=== PATIENT | male | born 1970 | race Caucasian/White ===

== ENCOUNTER 2016-10-08 15:22 | Emergency (ER) | payer BC, OTHER ==
[2016-10-08 15:28] VITALS: BP 123/78; PULSE 86; TEMP 98.4; BMI 32.3
[2016-10-08] MEDS ORDERED: TRIAMCINOLONE ACET 40MG/1ML VIAL IM ONE (15:37)
[2016-10-08] MEDS ORDERED: TRIAMCINOLONE ACET 40MG/1ML VIAL ONE (16:15)
--- NOTE | 2016-10-08 16:39 | PDOC ---
History of Present Illness - General Chief Complaint: Poison [place],Poison Rusty Exposure Stated Complaint: POISON RUSTY Time Seen by Provider: 10/08/16 15:35 History Source: Patient Exam Limitations: No Limitations - History of Present Illness Initial Comments: 10/08/16 16:59 CHIEF COMPLAINT: Poison rusty HISTORY OF PRESENT ILLNESS: Patient is a 46-year-old male, no significant medical history currently on no medication. He was working in his friend's yard and noticed rash the next day, poison rusty, has been using over-the- counter remedies without resolve now areas spread to upper thighs. No rash to face or genitalia, patient concerned because it is spreading and getting worse. Timing/Duration: reports: week Severity: Yes: moderate Location: reports: generalized Respiratory Risk Factors: reports: other (plant/ poison rusty) Modifying Factors: improves with: calamine lotion, scratching Associated Symptoms: reports: rash Past History - Past Medical History Allergies/Adverse Reactions: Allergies Allergy/AdvReac Type Severity Reaction Status Date / Time No Known Allergies Allergy Verified 10/08/16 15:28 Home Medications: Ambulatory Orders Calamine 8% Topical Lotion - 1 applic TP BID #1 bottle 10/08/16 Suicide Attempt (Hx): No Other medical history: NONE - Immunization History Td Vaccination: Yes Immunization Up to Date: Yes - Psycho/Social/Smoking Cessation Hx Anxiety: No Suicidal Ideation: No Smoking Status: No Smoking History: Never smoked Number of Cigarettes Smoked Daily: 0 Cigars Per Day: 0 Hx Alcohol Use: No Drug/Substance Use Hx: No Substance Use Type: None Review of Systems - Review of Systems Constitutional: No: Symptoms Reported HEENTM: No: Symptoms Reported Respiratory: No: Symptoms reported Cardiac (ROS): No: Symptoms Reported ABD/GI: No: Symptoms Reported : No: Symptoms Reported Musculoskeletal: No: Symptoms Reported Integumentary: Yes: Pruritus, Rash Neurological: No: Symptoms reported Hematologic/Lymphatic: No: Symptoms Reported All Other Systems: Reviewed and Negative *Physical Exam - Vital Signs Last Vital Signs Temp Pulse Resp BP Pulse Ox 98.4 F 86 20 123/78 10/08/16 15:25 10/08/16 15:25 10/08/16 15:25 10/08/16 15:25 - Physical Exam General Appearance: Yes: Appropriately Dressed. No: Apparent Distress Neck: negative: Tender lateral, Tender midline Respiratory/Chest: positive: Lungs Clear, Normal Breath Sounds. negative: Respiratory Distress, Accessory Muscle Use Cardiovascular: positive: Regular Rhythm, Regular Rate Lymphatic: negative: Adenopathy Integumentary: positive: Rash. negative: Erythema, Diaphoresis, Petechiae, Swelling, Ecchymosis, Bruising Neurologic: positive: Alert, Normal Mood/Affect ED Treatment Course - Medications Given in the ED: ED Medications Discontinued Medications Generic Name Dose Route Start Last Admin Trade Name Mei PRN Reason Stop Dose Admin Triamcinolone Acetonide 40 mg 10/08/16 15:37 10/08/16 16:18 Aristocort-40 Injection - IM 10/08/16 15:38 40 mg ONCE ONE Administration Medical Decision Making - Medical Decision Making 10/08/16 17:03 A/P : Patient with poison rusty. Has been using over the counter rusty block and zanfel without resolve. Areas are spreading and getting worse. Kenalog 40 mg IM x 1 ordered. To follow up with dermatology if symptoms persist. Explained to patient that it may take several days to resolve the rash. I discussed the physical exam findings and final diagnoses with the patient. I answered all of the patient's questions. The patient was satisfied with the care received and felt comfortable with the discharge plan and treatment plan. *DC/Admit/Observation/Transfer Diagnosis at time of Disposition: Poison rusty dermatitis - Discharge Dispostion Disposition: HOME Condition at time of disposition: Good Admit: No - Prescriptions Prescriptions: Calamine 8% Topical Lotion - 1 applic TP BID #1 bottle - Referrals Referrals: Kate Michael MD [Primary Care Provider] - - Patient Instructions Printed Discharge Instructions: DI for Poison Rusty Allergy Additional Instructions: Please refrain from rubbing or scratching area. Please note that medication may take a few days to work. Zanfel.
== END 2016-10-08 16:44 | disposition home or self-care (01) ==
LOC: JERFT 15:22
PROC: 3E0233Z Introduction of Anti-inflammatory into Muscle, Percutaneous Approach (ICD-10-PCS; principal; 2016-10-08)
DX: L23.7 Allergic contact dermatitis due to plants, except food (principal)
CPT/HCPCS: 99281-25

== ENCOUNTER 2016-10-13 20:17 | Emergency (ER) | payer BC ==
[2016-10-13 20:23] VITALS: BP 131/97; PULSE 79; TEMP 97.5; BMI 32.3
[2016-10-13] MEDS ORDERED: predniSONE 20 MG TABLET (UD) PO ONE (22:14)
[2016-10-13] MEDS ORDERED: LORATADINE 10 MG TABLET PO ONE (22:22)
--- NOTE | 2016-10-13 22:23 | PDOC ---
History of Present Illness <YovanaRo - Last Filed: 10/13/16 22:14> - General History Source: Patient Exam Limitations: No Limitations - History of Present Illness Initial Comments: 10/13/16 22:52 Chief complaint: stung by multiple beess History of Presents Illness: The patient is a 46 year old [employer] male, with no significant past medical history who presents to the emergency department with multiple bee sting bites 2 days. Patient reports 4-5 sting bites on his L hand, twice on his R hand, once on his R wrist, and once on R upper arm. Patient states he was helping a friend cut down a tree when he thinks he noticed yellow jacket bees. He denies any difficulty breathing or swallowing however noted increased redness and swelling to his L dorsal hand. Patient is currently complaining of burning sensation to sting areas and itchiness unrelated by just taking benadryl. Patient also applied hydrocortisone cream to beesting area however denies relief. The patient reports he was evaluated on 10/12/2015 and was given 40 mg of Kenalog for poison glen. <Galilea Varner - Last Filed: 10/13/16 22:53> - General Chief Complaint: Bite Stated Complaint: MULTIPLE BEE STINGS Time Seen by Provider: 10/13/16 20:40 Past History - Past Medical History Suicide Attempt (Hx): No Other medical history: denies - Immunization History Td Vaccination: Yes Immunization Up to Date: Yes - Psycho/Social/Smoking Cessation Hx Anxiety: No Suicidal Ideation: No Smoking Status: No Smoking History: Never smoked Number of Cigarettes Smoked Daily: 0 Cigars Per Day: 0 Hx Alcohol Use: No Drug/Substance Use Hx: No Substance Use Type: None <Ro Yen - Last Filed: 10/13/16 22:14> <Galilea Varner - Last Filed: 10/13/16 22:53> - Past Medical History Allergies/Adverse Reactions: Allergies Allergy/AdvReac Type Severity Reaction Status Date / Time No Known Allergies Allergy Verified 10/13/16 20:23 Home Medications: Ambulatory Orders Calamine 8% Topical Lotion - 1 applic TP BID #1 bottle 10/08/16 Review of Systems - Review of Systems Able to Perform ROS?: Yes Comments:: 10/13/16 22:52 CONSTITUTIONAL: Absent: fever, no chills, no fatigue EYES: Absent: visual changes ENT: Absent: ear pain, no sore throat CARDIOVASCULAR: Absent: chest pain, no palpitations RESPIRATORY: Absent: cough, no SOB GI: Absent: abdominal pain, no nausea, no vomiting, no constipation, no diarrhea GENITOURINARY: Absent: dysuria, no frequency, no hematuria MUSCULOSKELETAL: Absent: back pain, no arthralgia, no myalgia SKIN: + itching and erythema to sting bites. Absent: rash NEURO: Absent: headache <TellyGalilea - Last Filed: 10/13/16 22:53> *Physical Exam - Vital Signs Last Vital Signs Temp Pulse Resp BP Pulse Ox 97.5 F L 79 18 131/97 97 10/13/16 20:19 10/13/16 20:19 10/13/16 20:19 10/13/16 20:19 10/13/16 20:19 <Ro Yen - Last Filed: 10/13/16 22:14> - Vital Signs Last Vital Signs Temp Pulse Resp BP Pulse Ox 97.5 F L 79 18 131/97 97 10/13/16 20:19 10/13/16 20:19 10/13/16 20:19 10/13/16 20:19 10/13/16 20:19 - Physical Exam Comments: 10/13/16 22:53 GENERAL: Well-appearing, well-nourished. No apparent distress. HEENT: Normocephalic, atraumatic. PERRL, EOM intact. CARDIOVASCULAR: Normal S1, S2. Regular rate and rhythm. PULMONARY: Clear to auscultation bilaterally. ABDOMEN: Soft, non-distended, non-tender. EXTREMITIES: Normal ROM in all four extremities. No gross deformities. SKIN: L hand 4x 3 cm are of erythema over his 2nd-4th metacarpal slightly raised. R hand tiny pea sized area of erythema on R dorsal thumb, R proximal index finger and R upper lateral arm. Warm, dry. No rash NEUROLOGICAL: No focal neurological deficits. <TellyGalilea - Last Filed: 10/13/16 22:53> ED Treatment Course - Medications Given in the ED: ED Medications Discontinued Medications Generic Name Dose Route Start Last Admin Trade Name Freq PRN Reason Stop Dose Admin Loratadine 10 mg 10/13/16 22:22 10/13/16 22:27 Claritin - PO 10/13/16 22:23 10 mg ONCE ONE Administration Prednisone 40 mg 10/13/16 22:14 10/13/16 22:27 Deltasone - PO 10/13/16 22:15 Not Given ONCE ONE <Galilea Varner - Last Filed: 10/13/16 22:53> *DC/Admit/Observation/Transfer <Ro Yen - Last Filed: 10/13/16 22:14> - Attestations Scribe Attestion: 10/13/16 22:53 Documentation prepared by Galilea Varner, acting as medical records director for Ro Yen NP <Galilea Varner - Last Filed: 10/13/16 22:53> Diagnosis at time of Disposition: Bee sting reaction Qualifiers: Encounter type: initial encounter Injury intent: undetermined intent Qualified Code(s): T63.444A - Toxic effect of venom of bees, undetermined, initial encounter - Discharge Dispostion Disposition: HOME Condition at time of disposition: Stable - Referrals Referrals: Kate Michael MD [Primary Care Provider] - - Patient Instructions Additional Instructions: Continue take Benadryl as needed as directed by fire loss prevention engineer for itchiness Return to emergency room if areas of redness and swelling on left hand become larger or any fever Purchase zytrec 10 mg [id number] and take daily until redness and swelling of areas are resolved Patient voiced understanding of discharge instructions and all questions were answered
[2016-10-13] MEDS ORDERED: LORATADINE 10 MG TABLET ONE (22:25)
== END 2016-10-13 22:28 | disposition home or self-care (01) ==
LOC: JERFT 20:17
DX: T63.441A Toxic effect of venom of bees, accidental (unintentional), initial encounter (principal); Y92.096 Garden or yard of other non-institutional residence as the place of occurrence of the external cause
CPT/HCPCS: 99281-25

== ENCOUNTER 2016-11-08 11:18 | Emergency (ER) | payer BC ==
[2016-11-08 11:22] VITALS: BP 122/72; PULSE 91; TEMP 98.3; BMI 32.3
[2016-11-08] MEDS ORDERED: TRIAMCINOLONE ACET 40MG/1ML VIAL IM ONE (11:58)
[2016-11-08] MEDS ORDERED: TRIAMCINOLONE ACET 40MG/1ML VIAL ONE (12:10)
--- NOTE | 2016-11-08 12:12 | PDOC ---
History of Present Illness - General Chief Complaint: Poison [place],Poison Rusty Exposure Stated Complaint: POISON RUSTY Time Seen by Provider: 11/08/16 11:34 - History of Present Illness Initial Comments: 11/08/16 12:06 CHIEF COMPLAINT: poison rusty HISTORY OF PRESENT ILLNESS: 46 yo M with no PMH presents to fast track with poison rusty rash. PAtient reports he was recently treated for the same thing "a few weeks ago" and the rash did resolve, but "I touched it again two days ago and it's all over my arms and legs again. He has been using No rash to face or genitalia, patient concerned because it is spreading and getting worse. PAST MEDICAL HISTORY: Denies past medical history REVIEW OF SYSTEMS General/Constitutional: Denies fever or chills. HEENT: Denies swelling of throat, mouth, lips, tongue. Respiratory: Denies shortness of breath, cough, wheezing, or hemoptysis. Gastrointestinal: Denies nausea, vomiting, diarrhea. Genitourinary: Denies dysuria, frequency, or change in urination. Musculoskeletal: Denies joint or muscle swelling or pain. Denies neck or back pain. Skin and breasts: "I got poison rusty again." PHYSICAL EXAM General Appearance: Well-appearing, appropriately dressed. No apparent distress , no intoxication. HEENT: No swelling to mouth, lips, tongue, or throat. EOMI, PERRLA, normal ENT inspection, normal voice, TMs normal, pharynx normal. No conjunctival pallor. No photophobia, scleral icterus. Respiratory/Chest: Lungs CTAB. Cardiovascular: RRR. S1, S2. Musculoskeletal/Extremities: Normal inspection. FROM of all extremities, normal capillary refill. Pelvis Stable. No CVA tenderness. No tenderness to extremities, pedal edema, swelling, erythema or deformity. Integumentary: Generalized vesicular rash to b/l arms and legs. Appropriate color, dry, warm. No cyanosis, erythema, jaundice or rash Neurologic: sustainability coach II-XII intact. Fully oriented, alert. Appropriate mood/affect. Motor strength 5/5. No appreciable EOM palsy, facial droop or sensory deficit. 11/08/16 13:19 Past History - Past Medical History Allergies/Adverse Reactions: Allergies Allergy/AdvReac Type Severity Reaction Status Date / Time No Known Allergies Allergy Verified 11/08/16 11:21 Home Medications: Ambulatory Orders NK [No Known Home Medication] 11/08/16 Suicide Attempt (Hx): No Other medical history: NONE - Immunization History Td Vaccination: Yes Immunization Up to Date: Yes - Psycho/Social/Smoking Cessation Hx Anxiety: No Suicidal Ideation: No Smoking Status: No Smoking History: Never smoked Number of Cigarettes Smoked Daily: 0 Cigars Per Day: 0 Hx Alcohol Use: No Drug/Substance Use Hx: No Substance Use Type: None *Physical Exam - Vital Signs Last Vital Signs Temp Pulse Resp BP Pulse Ox 98.3 F 91 H 20 122/72 99 11/08/16 11:19 11/08/16 11:19 11/08/16 11:19 11/08/16 11:19 11/08/16 11:19 Medical Decision Making - Medical Decision Making 11/08/16 13:21 46 yo M with no PMH presents to fast track with poison rusty rash. -40 mg Kenalog IM Advised patient to use calamine lotion (patient states he has at home) and oatmeal bath for symptomatic relief. Advised patient of signs and symptoms for return to ER; patient verbalized understanding and agrees to plan. *DC/Admit/Observation/Transfer Diagnosis at time of Disposition: Poison rusty dermatitis - Discharge Dispostion Admit: No - Referrals Referrals: Kate Michael MD [Primary Care Provider] - - Patient Instructions Printed Discharge Instructions: DI for Poison Rusty Allergy Additional Instructions: Please continue using calamine lotion for symptomatic relief. You may also use oatmeal baths to help sooth your skin. If you experience any increased rash or swelling to your face, develop fever, vomiting, or diarrhea, or have shortness of breath or swelling of the mouth, lips, or throat, please return to the ER. - Post Discharge Activity
== END 2016-11-08 12:30 | disposition home or self-care (01) ==
LOC: JERFT 11:18
PROC: 3E0233Z Introduction of Anti-inflammatory into Muscle, Percutaneous Approach (ICD-10-PCS; principal; 2016-11-08)
DX: L23.7 Allergic contact dermatitis due to plants, except food (principal)
CPT/HCPCS: 99281-25

== ENCOUNTER 2017-01-12 16:26 | Emergency (ER) | payer BC ==
[2017-01-12 16:35] VITALS: BP 130/76; PULSE 93; TEMP 98.2; BMI 31.3
[2017-01-12] MEDS ORDERED: DIPHTH,PERTUSS(ACELL),TET 0.5 ML DISP.SYRIN IM ONE (17:22)
--- NOTE | 2017-01-12 17:27 | PDOC ---
History of Present Illness - General Chief Complaint: Injury Stated Complaint: LACERATION Time Seen by Provider: 01/12/17 17:21 History Source: Patient Exam Limitations: No Limitations - History of Present Illness Initial Comments: 01/12/17 17:24 Was helping a friend with some yard work, when the pulse soft fell and scratched his left elbow upper arm. Was not a deep cut, states use water to wash it but was concerned about possible infection and needing a tetanus shot. Denies numbness or tingling to hand no other injury. Occurred: reports: just prior to arrival, this afternoon Severity: reports: mild Pain Location: reports: upper extremity Method of Injury: Yes: direct blow, fall Associated Symptoms (Fall): denies symptoms (left arm) Past History - Travel Traveled outside of the country in the last 30 days: Yes Close contact w/someone who was outside of country & ill: Yes - Past Medical History Allergies/Adverse Reactions: Allergies Allergy/AdvReac Type Severity Reaction Status Date / Time No Known Allergies Allergy Verified 01/12/17 17:16 Home Medications: Ambulatory Orders NK [No Known Home Medication] 11/08/16 - Immunization History Td Vaccination: Yes Immunization Up to Date: Yes - Suicide/Smoking/Psychosocial Hx Smoking Status: No Smoking History: Current some day smoker Have you smoked in the past 12 months: Yes Number of Cigarettes Smoked Daily: 0 Cigars Per Day: 0 Information on smoking cessation initiated: Yes Hx Alcohol Use: No Drug/Substance Use Hx: No Substance Use Type: None Trauma Specific PMHX - Complaint Specific PMHX Back Injury: No Neck Injury: No Review of Systems - Review of Systems Able to Perform ROS?: Yes Is the patient limited Romanian proficient: Yes Constitutional: Yes: Symptoms Reported, See HPI, Malaise HEENTM: Yes: Symptoms Reported Integumentary: Yes: Symptoms Reported, See HPI (superficial abrasion to left upper arm 2, no active bleeding, no swelling) *Physical Exam - Vital Signs Last Vital Signs Temp Pulse Resp BP Pulse Ox 98.2 F 93 H 20 130/76 97 01/12/17 16:31 01/12/17 16:31 01/12/17 16:31 01/12/17 16:31 01/12/17 16:31 - Physical Exam General Appearance: Yes: Nourished, Appropriately Dressed. No: Apparent Distress HEENT: positive: [place]MEN, Normal ENT Inspection, TMs Normal, Pharynx Normal Musculoskeletal: positive: Normal Inspection Extremity: positive: Normal Capillary Refill, Normal Inspection, Normal Range of Motion Integumentary: positive: Normal Color, Other (2- 2 cm superficial lacerations/ abrasions to left lower upper arm, no active bleeding, no bruising,- ) Neurologic: positive: calker II-XII NML intact, Fully Oriented, Alert, Normal Mood/ Affect, Normal Response, Motor Strength 08/15 Progress Note - Progress Note Progress Note: Official abrasions to arm, tetanus/diphtheria/pertussis booster updated today, once were cleaned and dressed with bacitracin ointment. *DC/Admit/Observation/Transfer Diagnosis at time of Disposition: Superficial abrasion - Discharge Dispostion Disposition: HOME Condition at time of disposition: Stable Admit: No - Referrals Referrals: Kate Michael MD [Primary Care Provider] - - Patient Instructions Printed Discharge Instructions: DI for Abrasion Additional Instructions: Your tetanus/diphtheria/pertussis booster was updated today Rest, keep area elevated. Avoid strenuous activity or exercise until wound is healed Use hot soaks to area to bring more blood to the surface and encourage drainage Allow water from shower to wash area thoroughly for 2-3 minutes, and pat dry upon exit of shower and replace dressing. Change his dressing daily until the wound is completely healed. May use Tylenol or Motrin for mild pain relief Return to emergency Department for worsening swelling, pain, redness, fevers as needed
[2017-01-12] MEDS ORDERED: BACITRACIN 15 GM TUBE TOPICAL OINTMENT ONE (17:30)
== END 2017-01-12 17:33 | disposition home or self-care (01) ==
LOC: JERFT 16:26
PROC: 3E0234Z Introduction of Serum, Toxoid and Vaccine into Muscle, Percutaneous Approach (ICD-10-PCS; principal; 2017-01-12)
DX: S40.812A Abrasion of left upper arm, initial encounter (principal); W22.8XXA Striking against or struck by other objects, initial encounter; Y93.H2 Activity, gardening and landscaping; Y92.89 Other specified places as the place of occurrence of the external cause
CPT/HCPCS: 90715; 99281-25

== ENCOUNTER 2018-09-29 09:34 | Inpatient (IN) | payer BC ==
--- NOTE | 2018-09-14 13:20 | HP ---
DATE OF ADMISSION: 09/29/2018 DATE OF DICTATION: 08/24/2018 REASON FOR ADMISSION: Complex chronic incarcerated ventral hernia. BRIEF HISTORY: This is a 48-year-old gentleman who was told he had a ventral hernia over 10 years ago. The patient stated the hernia at that time was small and it caused him no problems. Therefore, he did not have this repaired. Over this 10-year time course the hernia has gotten much larger and now recently he has a sharp pain in the area. The most recent attack of sharp pain was approximately a week ago. He now has pain radiating to the lower abdomen and both groins at times. He has had no nausea or vomiting associated with this. PAST MEDICAL HISTORY: No coronary artery disease, hypertension or diabetes. PAST SURGICAL HISTORY: The patient has had an ACL and meniscal repair. ALLERGIES: None. MEDICATIONS: Gabapentin. 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 He does not smoke. He drinks socially. PHYSICAL EXAMINATION: The patient examined in the erect and supine positions. He has an upper midline diastasis from xiphoid to umbilicus of moderate size. He has a chronically incarcerated ventral hernia in the midline. The defects are not appreciated due to its chronically incarcerated nature. The skin overlying the hernia is not thinned. The hernia is not tender. IMPRESSION/PLAN: Chronically incarcerated complex ventral hernia: This is a 48-year-old gentleman with a complex chronically incarcerated ventral hernia for the past 10 years. It has gotten so large that he wishes to have this repaired. The patient is scheduled for an open repair component separation. The indications, alternatives and complications of the procedure were discussed. Questions were answered. We will plan on obtaining written consent the day of surgery. MYKEL WYLIE M.D. [id number]
[2018-09-28 15:29] VITALS: BMI 32.3
[2018-09-29] MEDS ORDERED: ceFAZolin SODIUM 1 GM VIAL ONE (09:36)
[2018-09-29] MEDS ORDERED: TAMSULOSIN HCL 0.4 MG CAP ONE (09:36)
[2018-09-29] MEDS ORDERED: TAMSULOSIN HCL 0.4 MG CAP PO ONE (09:50)
[2018-09-29] MEDS ORDERED: MIDAZOLAM HCL 2 MG/2 ML SINGLE DOSE VIAL ONE ×3 (10:24→11:05)
[2018-09-29] MEDS ORDERED: BUPIVACAINE LIPOSOME/PF (EXPAREL) 266 MG/20 ML VIAL ONE (10:25)
[2018-09-29] MEDS ORDERED: BUPIVACAINE HCL/PF 0.5% (5MG/ML) 10 ML VIAL ONE (10:25)
[2018-09-29] MEDS ORDERED: ROCURONIUM BROMIDE 50 MG/5 ML SYRINGE ONE ×3 (11:12→12:01)
[2018-09-29] MEDS ORDERED: PROPOFOL 20 ML ONE ×2 (11:12→12:44)
[2018-09-29] MEDS ORDERED: ceFAZolin SODIUM 1 GM VIAL IVPB ONE (11:14)
[2018-09-29] MEDS ORDERED: ACETAMINOPHEN 325 MG TABLET (FP) PO PRN (11:21)
[2018-09-29] MEDS ORDERED: ONDANSETRON 4 MG/2 ML VIAL IVPUSH PRN ×2 (11:21→13:25)
[2018-09-29] MEDS ORDERED: MORPHINE SULFATE 8 MG/ML VIAL IVPB PRN (11:21)
[2018-09-29] MEDS ORDERED: oxyCODONE HCL 5 MG TABLET PO PRN (11:21)
[2018-09-29] MEDS: IBUPROFEN 800 MG/8 ML IJ IVPB SCH ×3 (11:30→23:44)
[2018-09-29] MEDS ORDERED: GABAPENTIN 300 MG CAPSULE (FP) PO SCH (11:30)
[2018-09-29] MEDS ORDERED: GLYCOPYRROLATE 0.2 MG/1 ML VIAL ONE (12:31)
[2018-09-29] MEDS ORDERED: NEOSTIGMINE METHYLSULFATE 0.5 MG/ML - 10 ML MDV ONE (12:31)
[2018-09-29] MEDS ORDERED: HYDROmorphone HCl 2 MG/ML VIAL IVPUSH ONE (13:26)
[2018-09-29] MEDS ORDERED: LACTATED RINGERS SOLUTION 1,000 ML IV SCH (13:30)
[2018-09-29] MEDS: D5-1/2NS+20 MEQ KCL - 20 MEQ/1,000 ML INFUS.BAG IV SCH ×2 (14:30→15:00)
[2018-09-30] MEDS: IBUPROFEN 800 MG/8 ML IJ IVPB SCH (05:38)
[2018-09-30 06:18] VITALS: TEMP 98.6
--- NOTE | 2018-09-30 09:33 | OP ---
DATE OF OPERATION: 09/29/2018 PREOPERATIVE DIAGNOSIS: Chronically incarcerated complex ventral hernia. POSTOPERATIVE DIAGNOSIS: Chronically incarcerated complex ventral hernia. PROCEDURE: Open repair of complex chronically incarcerated ventral hernia with mesh, bilateral component separation, partial omentectomy. SURGEON: Obinna Agarwal MD ANIMAL CAREGIVER: Maikel Eagle MD ANESTHESIA: Nathalie Aguillon MD (general). ESTIMATED BLOOD LOSS: Minimal. SPECIMEN: Portion of omentum. INDICATIONS/PROCEDURE: This is a 48-year-old gentleman with a known chronically incarcerated ventral hernia that is causing him discomfort. He wished to have this repaired. Patient identified and appropriately positioned on the operating table. After placement of general anesthesia, the abdomen was prepped and draped in the usual sterile fashion with ChloraPrep. A midline incision was made deep in the subcutaneous tissue. The hernia dissected free from the subcutaneous tissue down to the level of the fascia. It was circumferentially isolated at the fascial level. The hernia sac then subsequently entered and contained incarcerated omentum. The sac was a slider. Portion of the omentum was posteriorly clamped, divided, and tied with 3-0 Vicryl suture. Next, the right retrorectus space was entered by dividing the right posterior sheath. The posterior rectus space was subsequently developed bluntly out laterally toward the periphery and vessels. Just medial to the periphery and vessels the fascia was subsequently scored, and a myofascial separation of the transversus was performed from the obliques and rectus junction. This was carried approximately 4 inches above and below the actual defect. Once the myofascial separation on the right was completed, a similar approach was used on the left. The left retrorectus space was entered by dividing the posterior sheath. The posterior sheath subsequently off the muscle with blunt dissection out laterally. Just medial to the periphery and vessels, the transversus fascia was subsequently scored and divided sharply, allowing myofascial separation of the transversus from the obliques. Next, the transversus layer was reapproximated along with the peritoneum in the midline with a running locking 3-0 Maxon suture. The defect measured, and a large 15 x 15 piece of ProGrip along with a 6 x 8 piece of FREDDY Bio was used for the operative repair. The 2 pieces of mesh were sewn together with interrupted 3-0 Vicryl suture. The FREDDY Bio was placed on the transversus side, and the career center director of the ProGrip were placed directly behind the rectus muscle. The mesh itself was anchored with interrupted AbsorbaTack anchors all around. The mesh itself was irrigated. The operative field noted to be hemostatic. Preliminary sponge counts were correct at this point. The fascia was then reapproximated with interrupted 0 PDS suture. The subcutaneous space irrigated, and the skin closed with rito. At the conclusion of the case, sponge counts were correct. ATTESTATION: Brief operative note handwritten on the preprinted form. [facility] queried prior to giving any narcotics. Dione LACKEY [id number] cc: Kate Michael MD
[2018-09-30] MEDS ORDERED: ENOXAPARIN NA (PORCINE) 40 MG/0.4 ML DISP.SYRIN SQ SCH (10:00)
[2018-09-30] MEDS ORDERED: PANTOPRAZOLE SODIUM 40 MG VIAL IVPUSH SCH (10:00)
[2018-09-30 10:18] VITALS: BP 132/79; PULSE 73
[2018-09-30] MEDS ORDERED: GABAPENTIN 300 MG CAPSULE (FP) PO SCH (12:21)
--- NOTE | 2018-10-02 12:51 | DS ---
DATE OF ADMISSION: 09/29/2018 DATE OF DISCHARGE: 09/30/2018 ADMITTING DIAGNOSIS: Complex ventral hernia. DISCHARGE DIAGNOSIS: Complex ventral hernia. BRIEF HISTORY: This is a 48-year-old male who presented to [facility] for surgical management of a complex ventral hernia. He underwent surgery on September 29 with a mesh repair utilizing component separation. Please review Dr. Obinna Umaña operative note for further details. Patient is discharged home today, September 30, 2018. He is ambulating, he is voiding, he is tolerating diet. At the time of his discharge, he is afebrile. He will go home with a prescription for Percocet which he will take as needed for pain. He also will take Motrin as needed for pain. He will resume his usual home medications of Neurontin and multivitamins. He will follow with Dr. Agarwal in approximately 2 weeks time for his postoperative. He is okay to shower, he will not lift anything more than 20 pounds, and he is okay to drive. DO GEORGINA FISHMAN/[id number]
--- NOTE | 2018-10-04 10:28 | PATH ---
Surgical Pathology Report Patient Name: JAROCHO EVERETT [facility]. Rec. #: [id number] /Age/Gender: 1970 (Age: 48) / M Account: [id number] Location: [address] [place] [address] Taken: 09/29/2018 Received: 09/29/2018 Reported: 10/01/2018 Physicians: Obinna Agarwal Specimen(s) Received HERNIA SAC WITH PORTION OF OMENTUM Clinical History Complex ventral hernia Final Diagnosis HERNIA SAC WITH PORTION OF OMENTUM, OPEN REPAIR: FIBROMEMBRANOUS AND ADIPOSE TISSUE COMPATIBLE WITH HERNIA SAC AND PORTION OF BENIGN OMENTUM. Electronically Signed Melissa Gardner M.D. Gross Description Received in formalin labeled "hernia sac with portion of omentum," is a 3.3 x 2.8 x 2.2 cm so-martinez portion of fibromembranous tissue with moderate attached fat, consistent with a hernia sac. A chemical sales representative section is submitted in one cassette. /09/30/2018 [facility]09/30/2018
== END 2018-09-30 13:02 | disposition home or self-care (01) | DRG 355 ==
LOC: JASUSAT 09:34 → JSAMEDAYSX 11:21 → J6S 14:38
PROVIDERS: ADMIT Obstetrics & Gynecology; ATTEND Surgery
PROC: 0DBU0ZZ Excision of Omentum, Open Approach (ICD-10-PCS; 2018-09-29)
PROC: 0WUF0JZ Supplement Abdominal Wall with Synthetic Substitute, Open Approach (ICD-10-PCS; principal; 2018-09-29 11:30)
DX: K43.6 Other and unspecified ventral hernia with obstruction, without gangrene (principal)
CPT/HCPCS: 88302-TC; 94010; 94760

== ENCOUNTER 2019-11-20 16:26 | Emergency (ER) | payer BC ==
[2019-11-20 16:39] VITALS: BP 111/74; PULSE 84; TEMP 98.1; BMI 29.0
[2019-11-20] MEDS ORDERED: DEXAMETHASONE SOD PHOSPHATE 4 MG/1 ML VIAL IM ONE (16:45)
[2019-11-20] MEDS ORDERED: DEXAMETHASONE SOD PHOSPHATE 4 MG/1 ML VIAL ONE (16:52)
--- NOTE | 2019-11-20 17:53 | PDOC ---
Documentation entered by Evaristo Johnson SCRIBE, acting as scribe for Randall Beatty MD. Randall Beatty MD: This documentation has been prepared by the Elizabeth mart Angel, SCRIBE, under my direction and personally reviewed by me in its entirety. I confirm that the documentation accurately reflects all work, treatment, procedures, and medical decision making performed by me. History of Present Illness - General Chief Complaint: Poison Gilman,Poison Rusty Exposure Stated Complaint: POISON RUSTY History Source: Patient Exam Limitations: No Limitations - History of Present Illness Initial Comments: 11/20/19 16:49 The patient is a 49 year old male who presents to the ED with rashes on his forearms and legs since yesterday. The patient states since yesterday he has been applying over the counter itch cream to his legs and forearms after coming in contact with poison rusty. The patient states he has had no relief with the cream and his symptoms are much worse today. The patient has no other complaints here in the ED. Past medical history: None Past History - Medical History Allergies/Adverse Reactions: Allergies Allergy/AdvReac Type Severity Reaction Status Date / Time No Known Allergies Allergy Verified 11/20/19 16:27 Home Medications: Ambulatory Orders Diphenhydramine [Benadryl -] 50 mg PO TID #15 capsule 11/20/19 predniSONE [Deltasone -] 30 mg PO DAILY #15 tablet 11/20/19 COPD: No - Surgical History Orthopedic Surgery: Yes (ACL REPAIR, MENISCUS REPAIR) - Immunization History Td Vaccination: Yes Immunization Up to Date: Yes - Psycho-Social/Smoking History Smoking Status: No Smoking History: Never smoked Have you smoked in the past 12 months: No Number of Cigarettes Smoked Daily: 0 Cigars Per Day: 0 - Substance Abuse Hx (Audit-C & DAST Scrn) How often the patient has a drink containing alcohol: Monthly or less Number of drinks the patient has on a typical day: 1 or 2 How often the patient has six or more drinks on one occasion: Never Score: In Men: 4 or > Positive; In Women: 3 or > Positive: 1 Screen Result (Pos requires Nsg. Audit-10AR): Negative In the last yr the pt used illegal drug/Rx for NonMed reason: No Score: Yes response is considered Positive: 0 Screen Result (Positive result requires Nsg. DAST-10): Negative Review of Systems - Review of Systems Able to Perform ROS?: Yes Comments:: 11/20/19 16:50 GENERAL/CONSTITUTIONAL: No fever or chills. No weakness. HEAD, EYES, EARS, NOSE AND THROAT: No change in vision. No ear pain or discha rge. No sore throat. CARDIOVASCULAR: No chest pain or shortness of breath. RESPIRATORY: No cough, wheezing, or hemoptysis. GASTROINTESTINAL: No nausea, vomiting, diarrhea or constipation. GENITOURINARY: No dysuria, frequency, or change in urination. MUSCULOSKELETAL: No joint or muscle swelling or pain. No neck or back pain. SKIN: +Rash on both forearms and legs. NEUROLOGIC: No headache, vertigo, loss of consciousness, or change in strength/sensation. ENDOCRINE: No increased thirst. No abnormal weight change. HEMATOLOGIC/LYMPHATIC: No anemia, easy bleeding, or history of blood clots. ALLERGIC/IMMUNOLOGIC: No hives or skin allergy. *Physical Exam - Vital Signs Last Vital Signs Temp Pulse Resp BP Pulse Ox 98.1 F 84 16 111/74 100 11/20/19 16:27 11/20/19 16:27 11/20/19 16:27 11/20/19 16:27 11/20/19 16:27 Medical Decision Making - Medical Decision Making 11/20/19 17:51 Patient with mild to moderate linear eczematous eruption on the arms and legs after contact with poison rusty. He states that he gets poison rusty every year, and the only thing that helps is a steroid injection and oral prednisone. He was cautioned regarding the potential side effects of steroids, even in short duration, but insists on IM and p.o. treatment. Local skin care was discussed including wet-to-dry dressings, avoiding sensitizing agents, and cleaning the nails, clothing, and bed sheets to remove residual resins. He is given a boots and shoes supervisor for follow-up. A short course of oral prednisone prescribed. Discharge - Discharge Information Problems reviewed: Yes Clinical Impression/Diagnosis: Poison rusty dermatitis Condition: Stable Disposition: HOME - Admission No - Additional Discharge Information Prescriptions: Diphenhydramine [Benadryl -] 50 mg PO TID #15 capsule predniSONE [Deltasone -] 30 mg PO DAILY #15 tablet - Follow up/Referral Referrals: Jackelyn Mederos [Staff Physician] - 1 week - Patient Discharge Instructions Patient Printed Discharge Instructions: DI for Poison Rusty Allergy Additional Instructions: Cool compresses, wet-to-dry dressings. Do not use any other medicine on the skin. Medication by mouth as directed Wash all clothing and bedding to remove residual resins. Also scrub the hands, especially under the fingernails, because the resident may stick there and cause repeated exposure when scratching. Take Benadryl 50 mg as needed for itching, especially at night to avoid scratching during sleep. See boots and shoes supervisor if no improvement or worsening occurs. - Post Discharge Activity
== END 2019-11-20 17:02 | disposition home or self-care (01) ==
LOC: FER 16:26
PROC: 3E023GC Introduction of Other Therapeutic Substance into Muscle, Percutaneous Approach (ICD-10-PCS; principal; 2019-11-20)
DX: L23.7 Allergic contact dermatitis due to plants, except food (principal)
CPT/HCPCS: 99284-25

== ENCOUNTER 2020-03-01 14:24 | Emergency (ER) | payer BC ==
[2020-03-01 14:35] VITALS: BP 113/80; PULSE 82; BMI 29.7
[2020-03-01 16:05] LABS: BASO % 1.4 % (0-2.0); EOS % 2.3 % (0-4.5); HEMATOCRIT 45.1 % (35.4-49); HEMOGLOBIN 15.1 GM/dL (11.7-16.9); LYMPH % 24.5 % (8-40); MCH 30.7 pg (25.7-33.7); MCHC 33.4 g/dl (32.0-35.9); MEAN CELL VOLUME 91.9 fl (80-96); MEAN PLT VOLUME 7.5 fl (7.5-11.1); MONO % 9.1 % (3.8-10.2); NEUT % 62.7 % (42.8-82.8); PLATELET COUNT 341 K/MM3 (134-434); RDW 13.2 % (11.9-15.9)
[2020-03-01] MEDS ORDERED: ACETAMINOPHEN 1000 MG/100 ML VIAL (NON FORMULARY) IVPB ONE (16:10)
[2020-03-01 16:32] LABS: POTASSIUM 4.5 mmol/L (3.5-5.1)
[2020-03-01 16:34] LABS: CALCIUM 9.4 mg/dL (8.5-10.1)
[2020-03-01 16:35] LABS: ALBUMIN 3.6 g/dl (3.4-5.0); BLOOD UREA NITROGEN 15.6 mg/dL (7-18)
[2020-03-01 16:38] LABS: CREATININE 0.9 mg/dL (0.55-1.3)
[2020-03-01 16:39] LABS: BILIRUBIN,TOTAL 0.4 mg/dL (0.2-1)
[2020-03-01 16:40] LABS: TOT PROT 7.6 g/dl (6.4-8.2)
[2020-03-01 17:02] LABS: PH,URINE 6.5 (5.0-8.0); URINE APPEARANCE CLEAR; URINE BILIRUBIN NEGATIVE (NEGATIVE); URINE COLOR YELLOW; URINE GLUCOSE (UA) NEGATIVE (NEGATIVE); URINE KETONE NEGATIVE (NEGATIVE); URINE LEUK ESTERASE NEGATIVE (NEGATIVE); URINE NITRITE NEGATIVE (NEGATIVE); URINE PROTEIN NEGATIVE (NEGATIVE); URINE UROBILINOGEN 0.2 mg/dL (0.2-1.0)
[2020-03-01] MEDS ORDERED: AMOX TR/POT CLAV 875MG/125MG TABLETS (FP) PO ONE (18:18)
[2020-03-01] MEDS ORDERED: AMOX TR/POT CLAV 875MG/125MG TABLETS (FP) ONE (18:20)
== END 2020-03-01 18:38 | disposition home or self-care (01) ==
LOC: JER 14:24
DX: K57.92 Diverticulitis of intestine, part unspecified, without perforation or abscess without bleeding (principal)
CPT/HCPCS: 36415; 74177-TC; 80053; 81003; 85025; 99285-25; Q9967

== ENCOUNTER 2020-09-05 06:56 | Emergency (ER) | payer OTHER, BC ==
[2020-09-05 07:09] VITALS: BP 106/70; PULSE 63; TEMP 98; BMI 29.8
[2020-09-05] MEDS ORDERED: KETOROLAC TROMETHAMINE 30 MG/1 ML VIAL IM ONE (07:44)
[2020-09-05] MEDS ORDERED: KETOROLAC TROMETHAMINE 30 MG/1 ML VIAL ONE (08:12)
== END 2020-09-05 08:17 | disposition home or self-care (01) ==
LOC: JER 06:56
PROC: 3E0233Z Introduction of Anti-inflammatory into Muscle, Percutaneous Approach (ICD-10-PCS; principal; 2020-09-05)
DX: S89.90XA Unspecified injury of unspecified lower leg, initial encounter (principal)
CPT/HCPCS: 99284-25

== ENCOUNTER 2020-09-24 14:13 | Emergency (ER) | payer BC, OTHER ==
[2020-09-24 14:25] VITALS: BP 111/70; PULSE 92; TEMP 98.3; BMI 31.4
[2020-09-24] MEDS ORDERED: FAMOTIDINE 20 MG TABLET PO ONE (14:44)
[2020-09-24] MEDS ORDERED: DEXAMETHASONE SOD PHOSPHATE 10 MG/1 ML VIAL IM ONE (14:44)
[2020-09-24] MEDS ORDERED: DEXAMETHASONE SOD PHOSPHATE 10 MG/1 ML VIAL ONE (14:45)
[2020-09-24] MEDS ORDERED: FAMOTIDINE 20 MG TABLET ONE (14:46)
== END 2020-09-24 15:07 | disposition home or self-care (01) ==
LOC: JERFT 14:13
PROC: 3E023GC Introduction of Other Therapeutic Substance into Muscle, Percutaneous Approach (ICD-10-PCS; principal; 2020-09-24)
DX: R22.31 Localized swelling, mass and lump, right upper limb (principal); T63.441A Toxic effect of venom of bees, accidental (unintentional), initial encounter
CPT/HCPCS: 99284-25; J1100